=== PATIENT | female | born 2000 | race Two or more races ===

== ENCOUNTER 2024-03-26 09:27 | Outpatient (CLI) | payer MEDICAID, SELFPAY ==
--- NOTE | 2024-03-26 09:40 | XR_ITS ---
Examination: Biophysical profile, ultrasound Date and time of exam: March 26, 2024 1034 hours INDICATIONS: No movement depicted last night Technique: Multiple transabdominal sonographic images of the pelvis abdomen obtained. Attention is directed to the breathing movement, gross body movement, amniotic fluid volume and tone. Findings: Amniotic fluid index 7.4 cm Total biophysical profile is 8 of 8. breathing movement is 2. Gross body movement is 2. tone is 2. Qualitative amniotic fluid volume is 2 Impression: Biophysical profile is 8 of 8.
--- NOTE | 2024-03-26 09:40 | XR_ITS ---
Examination: Complete OB ultrasound greater than 14 weeks Date and time of exam: March 26, 2024 1043 hours INDICATIONS: No movement noted last night Findings: Viable intrauterine single fetus with single amniotic sac presentation cephalic spine maternal left Cardiac motion 144 BPM Placenta anterior grade 2 Clinical: Insertion 3 vessel seen Amniotic fluid index 9.2 cm Cervix 4.6 cm Ovaries obscured by bowel gas. Composite estimated gestational age based on BPD, head circumference, abdominal circumference, femur length is 36 weeks 3 days Estimated weight 2815 g. Survey of intracranial anatomy, spinal anatomy, abdominal anatomy, four-chamber heart performed with no abnormalities identified. Impression: Viable intrauterine gestation cephalic presentation.
[2024-03-26 09:46] VITALS: BP 124/64; PULSE 86; RESP 16; TEMP 36.8; O2SAT 100
[2024-03-26 09:47] VITALS: BMI 53.6
[2024-03-26 09:48] VITALS: TEMP 36.8
[2024-03-26 09:56] VITALS: BP 118/57; PULSE 87
[2024-03-26 10:06] VITALS: BP 114/55; PULSE 95
[2024-03-26 10:16] VITALS: BP 110/52; PULSE 89
[2024-03-26 10:26] VITALS: BP 112/53; PULSE 95
== END 2024-03-26 11:45 | disposition home or self-care (01) ==
LOC: S4S1 09:33 → S4SX 09:34
PROVIDERS: PCP Family Medicine; Referring Provider Advanced Practice Midwife; Visit Provider Specialist
DX: O36.8130 Decreased fetal movements, third trimester, not applicable or unspecified (principal); Z3A.36 36 weeks gestation of pregnancy
CPT/HCPCS: 59025; 76805; 76819

== ENCOUNTER 2024-04-13 10:30 | Outpatient (CLI) | payer MEDICAID, SELFPAY ==
[2024-04-13 10:36] VITALS: BP 132/63; PULSE 96
[2024-04-13 10:38] VITALS: BMI 54.3
[2024-04-13 10:51] VITALS: BP 132/63; PULSE 87; RESP 18; RESP 99; TEMP 36.7
== END 2024-04-13 11:10 | disposition home or self-care (01) ==
LOC: S4S1 10:31 → S4SX 10:31
PROVIDERS: Referring Provider Advanced Practice Midwife; Visit Provider Advanced Practice Midwife
DX: Z34.03 Encounter for supervision of normal first pregnancy, third trimester (principal); Z36.9 Encounter for antenatal screening, unspecified; Z3A.39 39 weeks gestation of pregnancy
CPT/HCPCS: 59025

== ENCOUNTER 2024-04-15 12:14 | Outpatient (RCR) | payer MEDICAID, SELFPAY ==
--- NOTE | 2024-04-01 13:19 | XR_ITS ---
Examination: Biophysical profile, ultrasound Date and time of exam: April 01, 2024 1344 hours INDICATIONS: Morbid obesity complicating Technique: Multiple transabdominal sonographic images of the pelvis abdomen obtained. Attention is directed to the breathing movement, gross body movement, amniotic fluid volume and tone. Findings: Amniotic fluid index 9.9 cm Total biophysical profile is 8 of 8. breathing movement is 2. Gross body movement is 2. tone is 2. Qualitative amniotic fluid volume is 2 Impression: Biophysical profile is 8 of 8.
[2024-04-01 14:09] VITALS: BP 130/70; PULSE 106; RESP 16; TEMP 36.7
--- NOTE | 2024-04-08 12:34 | XR_ITS ---
Examination: Biophysical profile, ultrasound Date and time of exam: April 08, 2024 1253 hrs. Indications: Morbid obesity complicating Technique: Multiple transabdominal sonographic images of the pelvis abdomen obtained. Attention is directed to the breathing movement, gross body movement, amniotic fluid volume and tone. Findings: Amniotic fluid index 17.1 cm Total biophysical profile is 8 of 8. breathing movement is 2. Gross body movement is 2. tone is 2. Qualitative amniotic fluid volume is 2 Impression: Biophysical profile is 8 of 8.
[2024-04-08 13:55] VITALS: BP 138/78; PULSE 90; RESP 18; TEMP 36.8
--- NOTE | 2024-04-15 12:35 | XR_ITS ---
Examination: Biophysical profile, ultrasound Date and time of exam: April 15, 2024 1236 hrs. Indications: Morbid obesity complicating Technique: Multiple transabdominal sonographic images of the pelvis abdomen obtained. Attention is directed to the breathing movement, gross body movement, amniotic fluid volume and tone. Findings: Fluid index 4.6 cm Total biophysical profile is 6 of 8. breathing movement is 2. Gross body movement is 2. tone is 2. Qualitative amniotic fluid volume is 0 Impression: Biophysical profile is 6 of 8.
[2024-04-15 13:29] VITALS: BP 124/76; PULSE 90; RESP 18; TEMP 36.9
== END 2024-04-15 23:59 | disposition home or self-care (01) ==
LOC: S4S1 12:14
PROVIDERS: Referring Provider Advanced Practice Midwife; Visit Provider Advanced Practice Midwife
DX: O99.213 Obesity complicating pregnancy, third trimester (principal); E66.9 Obesity, unspecified; O09.93 Supervision of high risk pregnancy, unspecified, third trimester; Z3A.39 39 weeks gestation of pregnancy
CPT/HCPCS: 59025; 76819

== ENCOUNTER 2024-04-15 13:49 | Inpatient (IN) | payer MEDICAID, SELFPAY ==
[2024-04-15 15:50] VITALS: BP 141/80; PULSE 94
[2024-04-15 16:05] LABS: Basophils % (Auto) 0 % (0-2.5); Eosinophils % (Auto) 0 % (0-10); Hematocrit 38.3 % (36.0-46.0); Hemoglobin 13.1 g/dL (12.0-16.0); Immature Granulocytes % (Auto) 0 % (0-0); Immature Granulocytes Auto 0.04 Thou/mm3 (0.00-0.00); Lymphocytes # (Auto) 2.2 Thou/mm3 (1.0-4.8); Lymphocytes % (Auto) 21 % (10-50); Mean Corpuscular HGB Conc 34.2 g/dl (31.0-37.0); Mean Corpuscular Hemoglobin 29.4 pg (25.0-35.0); Mean Corpuscular Volume 86 fL (80-100); Monocytes # (Auto) 0.9 Thou/mm3 (0.0-0.8); Monocytes % (Auto) 8 % (0-12); Neutrophils # (Auto) 7.4 Thou/mm3 (1.8-7.7); Neutrophils % (Auto) 70 % (37-80); Nucleated Red Blood Cell % 0 /100 WBC (0); Platelet Count 291 Thou/mm3 (140-440); RDW Standard Deviation 40.1 fL (36.4-46.3); Red Blood Count 4.46 Miln/mm3 (4.00-5.20); White Blood Count 10.5 Thou/mm3 (3.6-11.0)
[2024-04-15 16:36] VITALS: BP 138/65; PULSE 81
[2024-04-15] MEDS: RINGERS LACTATED 1000 ML 1,000 ML 125 ML IV (16:40)
[2024-04-15 16:44] LABS: Syphilis Nonreactive (Nonreactive)
[2024-04-15] MEDS: MISOPROSTOL 50 mCg TABLET PO ×2 (16:55→20:58)
[2024-04-15 16:56] VITALS: BMI 54.1
[2024-04-15 18:10] VITALS: RESP 18; TEMP 36.9
--- NOTE | 2024-04-15 19:34 | XR_ITS ---
Examination: Complete OB ultrasound greater than 14 weeks Date and time of exam: April 15, 2024 195 hrs. Pelvic cramping after induction medications today Findings: Viable intrauterine single fetus with single amniotic sac presentation cephalic Cardiac motion 140 BPM Placenta anterior grade 2 Umbilical cord insertion seen Amniotic fluid index 9.7 cm Cervix ovaries obscured by bowel gas. Composite estimated gestational age based on BPD, head circumference, abdominal circumference, femur length is 38 weeks 6 days Estimated weight 3543.9 g. Survey of intracranial anatomy, spinal anatomy, abdominal anatomy, four-chamber heart performed with no abnormalities identified. Impression: Viable intrauterine gestation cephalic presentation.
[2024-04-15 20:35] VITALS: BP 130/58; PULSE 87
[2024-04-15 23:30] VITALS: TEMP 36.8
[2024-04-15 23:32] VITALS: BP 136/83; PULSE 85
[2024-04-16] VITALS (166 sets, daily range): BP systolic 109–187; BP diastolic 54–112; PULSE 75–124; RESP 16–18; TEMP 36.7–36.8; O2SAT 91–100
[2024-04-16] MEDS: MISOPROSTOL 50 mCg TABLET PO ×2 (01:00→04:58)
--- NOTE | 2024-04-16 09:11 | PD.LDHP ---
Documentation for date of: 04/16/24 OB Labor/Induct. HPI History of Present Illness Chief complaint: induction : 1 Para: 0 Term pregnancies: 0 pregnancies: 0 Living children: 0 History of Abortions: Spontaneous and Elective: 0 History of Vaginal deliveries: 0 History of sections: No History of : No Date of last menstrual period: 07/14/23 BRODY: 04/19/24 Gestational Age (weeks): 39 Gestational Age (days): 3 Gestational age based on last menstrual period: 39 Indication for induction: other (obesity) History of present illness: 24-year-old 1 para 0 admit to labor and delivery for induction of labor. Patient had come in for NST BPP and her BRIANA was 4 patient has a history of morbid obesity. BMI is 50. So patient was kept for induction. She was followed at family her first visit family health clinic was at 30 weeks. However her first visit to an OB was 7 weeks. Denies social habits. Denies surgery. Denies chronic illness. Patient is Rh+, antibody screen negative, RPR nonreactive, rubella immune, hepatitis B-, hep C negative, HIV negative, GC and Chlamydia were negative. She had negative carrier screens negative AFP and NIPT. A normal 1 hour. And her GBS was negative History of Present Dating criteria: LMP confirmed by 1st trimester US Adequate Care: Yes Ultrasounds: normal 1st trimester US and normal mid trimester US Obstetrical complications: none Medical complications: none Labs Labs: Negative: Hepatitis B, HIV, Chlamydia, Gonorrhea and Group Beta Strep Review of Systems Review of Systems Systems Reviewed: All systems reviewed, normal except as documented Past Medical History Surgical History SURGICAL: Negative Section Meds Home Medications and Allergies Home Medications ?Medication ?Instructions ?Recorded ?Confirmed ?Type kwiekccc-[id number]-[id number] 1 mg 2 tab PO DAILY 03/07/24 04/15/24 History tablet Allergies Allergy/AdvReac Type Severity Reaction Status Date / Time No Known Allergies Allergy Verified 04/15/24 16:33 OB Exam Physical Exam Vital signs: Temp Pulse Resp BP 98.3 F 75 18 136/84 H 04/16/24 06:56 04/16/24 06:59 04/16/24 06:56 04/16/24 06:59 Narrative: Normal heart rate and rhythm. Lungs clear no wheezes. Gravid abdomen. Gynecoid pelvis. Estimated weight 3500 g. Vaginal exam admission was 50%, 2, soft. -1. Vertex. Bag water intact. heart rate category 1 with accelerations and moderate variability and irregular contractions Detailed Labor and Delivery Exam Dilation (cm): 2 Effacement (%): 50 Cervix position: mid station: -2 Consistency: soft Presentation: Vertex Cervical ripeness score: 6 Membranes: intact Baseline heart rate: 135 monitor accelerations: 15x15 monitor decelerations: None intermediate variability: Moderate (11-25) Contraction frequency (min): irreg Contraction duration (sec): 30 Tachysystole: No Contraction intensity: Mild OB Results Labs 04/15/24 15:30 Labs: Short CBC 04/15/24 Range/Units 15:30 WBC 10.5 (3.6-11.0) Thou/mm3 Hgb 13.1 (12.0-16.0) g/dL Hct 38.3 (36.0-46.0) % Plt Count 291 (140-440) Thou/mm3 Impressions Impression: induction OB Assessment & Plan Assessment and Plan (1) Normal labor and delivery: Status: Acute Additional Plan Induction method: per misoprostol protocol Plan: induction, anticipate NVD and consult MD elizabeth
[2024-04-16] MEDS: OXYTOCIN in NS 30 units 30 UNIT/500 ML BAG IV (12:20)
[2024-04-16] MEDS: RINGERS LACTATED 1000 ML 1,000 ML 125 ML IV ×3 (14:35→18:34)
--- NOTE | 2024-04-16 15:35 | PD.LDPN ---
Documentation for date of: 04/16/24 OB Labor Progress Note Pain Control Pain control: tolerating well Pelvic Exam Dilation (cm): 4 Effacement (%): 50 station: -1 Amniotic membrane status: Ruptured (clear) Contractions Monitor mode: Internal Contraction frequency: q3 Contraction duration: 20 Contraction phase: Resting Contraction intensity: Mild Status status: Category l Assessment and Plan Pitocin rate (mU/min): 2 Assessment: induction ongoing Plan OB labor note: continuous present management CNM Management MD Consulted (describe details below): Yes
[2024-04-16] MEDS: fentaNYL CIT INJ 50 mCg/ML AMP 2ML 100 MCG IV (22:33)
[2024-04-16] MEDS: ONDANSETRON INJ 2 MG/ML INJ 2 ML 4 MG IV (23:26)
[2024-04-17] VITALS (88 sets, daily range): BP systolic 112–160; BP diastolic 60–82; PULSE 75–211; RESP 16–19; TEMP 36.5–37.2; O2SAT 83–100
[2024-04-17] MEDS: fentaNYL CIT INJ 50 mCg/ML AMP 2ML 100 MCG IV (01:15)
[2024-04-17] MEDS: MISOPROSTOL 200 mCg TABLET 800 MCG PR (03:14)
[2024-04-17] MEDS: LIDOCAINE HCL 1% 20 ML VIAL INFL (03:14)
[2024-04-17] MEDS: TRANEXAMIC ACID 1,000 MG IVPB 1,000 MG/100 ML BAG 200 MG IV (03:55)
--- NOTE | 2024-04-17 03:58 | OBDSUM_ITS ---
Data (Morrison) Data Hx Section: No : 1 Para: 0 Term: 0 : 0 : 0 Delivery Data (Morrison) Labor Data Stimulated/Augmented: Yes Induction: Yes Method: Cytotec (followed by pitocin) ROM Date: 04/16/24 ROM Time: 15:20 Rupture Type: AROM Amniotic Fluid: Clear Delivery Data EDC: 04/19/24 EDC calculated by:: LMP/early US confirmation Labor Onset Stage 1 Date: 04/16/24 Labor Onset Stage 1 Time: 20:00 Labor Onset Stage 2 Date: 04/17/24 Labor Onset Stage 2 Time: 02:32 Delivery Date: 04/17/24 Delivery Time: 03:06 Gestational age (weeks): 39 Gestational age (days): 3 Placenta Delivery Date: 04/17/24 Placenta Delivery Time: 03:12 Delivered by: Lana Michelle Delivery nurse: Jarvis oRsales Other staff at delivery: Nursery Nurse Other staff at delivery: Esperanza Ramos Delivery Method Delivery: Vaginal Delivery Type: Spontaneous Presentation: Compound (posterior hand) Position: OA Anesthesia Type Primary Anesthesia: Epidural Secondary Anesthesia: Local Delivery Room Medications Intrapartum Medications: Narcotics and Tocolytics Post Delivery Medications: Tocolytics and Cytotec Placenta Placenta Delivery: Spontaneous (placenta inspected, intact) Placenta Cultures Obtained: No Placenta Sent for Examination: No Cord Sample: Cord Blood Obtained Episiotomy Episiotomy: None Lacerations #1: Vaginal: 1st degree (and vaginal wall) Perineal repair Sutures used for repair: 3.0 Vicryl EBL Estimated blood loss (ml): 350 Umbilical Cord Umbilical Vessels: 3 Nuchal Cord: None Body Cord: None [place] Data (Morrison) Data Infant Gender: Male Weight Grams: 3310 1 Minute Total: 9 5 Minute Total: 9
[2024-04-17] MEDS: OXYTOCIN in NS 20 units 20 UNIT/1,000 ML BAG 125 UNIT IV (04:17)
[2024-04-17] MEDS: BENZO/LANO/ALOE (Dermoplast) 60 GM CAN 1 SPRAY TOP (04:22)
[2024-04-17] MEDS: IBUPROFEN TAB 400 MG TABLET 800 MG PO ×2 (04:24→16:56)
[2024-04-17] MEDS: DOCUSATE SOD 100 MG CAPSULE PO ×2 (08:04→21:27)
[2024-04-17 12:35] LABS: Basophils % (Auto) 0 % (0-2.5); Eosinophils % (Auto) 0 % (0-10); Hematocrit 32.4 % (36.0-46.0); Hemoglobin 10.9 g/dL (12.0-16.0); Immature Granulocytes % (Auto) 0 % (0-0); Immature Granulocytes Auto 0.07 Thou/mm3 (0.00-0.00); Lymphocytes # (Auto) 1.8 Thou/mm3 (1.0-4.8); Lymphocytes % (Auto) 11 % (10-50); Mean Corpuscular HGB Conc 33.6 g/dl (31.0-37.0); Mean Corpuscular Hemoglobin 29.2 pg (25.0-35.0); Mean Corpuscular Volume 87 fL (80-100); Monocytes # (Auto) 1.1 Thou/mm3 (0.0-0.8); Monocytes % (Auto) 7 % (0-12); Neutrophils # (Auto) 12.6 Thou/mm3 (1.8-7.7); Neutrophils % (Auto) 81 % (37-80); Nucleated Red Blood Cell % 0 /100 WBC (0); Platelet Count 257 Thou/mm3 (140-440); RDW Standard Deviation 41.4 fL (36.4-46.3); Red Blood Count 3.73 Miln/mm3 (4.00-5.20); White Blood Count 15.6 Thou/mm3 (3.6-11.0)
[2024-04-17] MEDS: ACETAMINOPHEN 325 MG TABLET 650 MG PO (21:29)
[2024-04-18 03:15] VITALS: BP 138/86; PULSE 84; RESP 16; TEMP 36.7; O2SAT 99
--- NOTE | 2024-04-18 07:05 | PD.LDPPPRG ---
Subjective Subjective Interval history: No complaints of pain. No dizziness. Bonding and breast-feed Exam Vital Signs Temp Pulse Resp BP Pulse Ox O2 Del Method 98.0 F 84 16 138/86 H 99 Room Air 04/18/24 03:15 04/18/24 03:15 04/18/24 03:15 04/18/24 03:15 04/18/24 03:15 04/18/24 03:15 Narrative Exam Vital signs stable afebrile. Breasts are soft. Fundus firm below the umbilicus. Perineum intact no swelling. Small lochia. Vaginal lacerations healing. Negative Homans' sign. Objective Labs 04/17/24 12:30 Labs: Laboratory Results - last 24 hr 04/17/24 12:30 WBC 15.6 H D RBC 3.73 L Hgb 10.9 L D Hct 32.4 L MCV 87 MCH 29.2 MCHC 33.6 RDW Std Deviation 41.4 Plt Count 257 D Neut % (Auto) 81 H Lymph % (Auto) 11 [place] % (Auto) 7 Eos % (Auto) 0 Baso % (Auto) 0 Neut # (Auto) 12.6 H Lymph # (Auto) 1.8 [place] # (Auto) 1.1 H Eos # (Auto) 0.0 Baso # (Auto) 0.0 Immature Gran # (Auto) 0.07 H Absolute Nucleated RBC 0.00 Immature Gran % 0 Nucleated RBC % 0 Assessment & Plan Problem List (1) Normal labor and delivery: Status: Acute Assessment Comment Assessment comment: 24 hr pp Plan Comment Plan Comment: Discharge home with baby. Continue vitamins and iron. Tylenol or ibuprofen for pain. Danger signs. Discussed ER precautions and parameters. Discussed signs and symptoms of infection. Increase fluids and rest return in 2 to 3 weeks visit Time Spent With Patient Time: Total time spent is greater than 50% in coordination of care (as documented) at patient's floor/unit and/or counseling patient:
--- NOTE | 2024-04-18 07:07 | PD.LDDS ---
DS: Providers Provider Date of admission: 04/15/24 13:49 Primary care physician: Physician No Primary/Family Admitting Provider: Checo Coe MD Attending Provider on Admission: Lana Michelle CNM Consults: 04/17/24 05:44 Referral Routine Comment: Attending Provider on DC: Lana Michelle CNM Discharging Provider: Lana Michelle CNM DS: Diagnosis Problem List Completed Was Problem List Reviewed/Reconciled?: Yes Summary/Hosp Course Brief History: 24-year-old 1 para 0 admit to labor and delivery for induction of labor. Patient had come in for NST BPP and her BRIANA was 4 patient has a history of morbid obesity. BMI is 50. So patient was kept for induction. She was followed at family her first visit family health clinic was at 30 weeks. However her first visit to an OB was 7 weeks. Denies social habits. Denies surgery. Denies chronic illness. Patient is Rh+, antibody screen negative, RPR nonreactive, rubella immune, hepatitis B-, hep C negative, HIV negative, GC and Chlamydia were negative. She had negative carrier screens negative AFP and NIPT. A normal 1 hour. And her GBS was negative Peripartum Data Delivery Method: Normal Vaginal Delivery Episiotomy Description: None Laceration Description: yes (vaginal, R labial) Time Spent with Patient Time attestation: Total time spent providing and/or coordinating discharge services: Exam Vital Signs Temp Pulse Resp BP Pulse Ox O2 Del Method 98.0 F 84 16 138/86 H 99 Room Air 04/18/24 03:15 04/18/24 03:15 04/18/24 03:15 04/18/24 03:15 04/18/24 03:15 04/18/24 03:15 Discharge Plan Plan Patient Disposition: HOME (Self Care) Prescriptions/Referrals Prescriptions/Med Rec: No Action 1 mg Tablet 2 tab PO DAILY Referrals: No Primary/Family,Physician [Primary Care Provider] - Patient/Caregiver Discharge Instructions Print Language: Bulgarian Activity Restrictions/Additional Instructions: Discharge home with baby. Continue vitamins and iron. Tylenol ibuprofen for pain. Parameters. Discussed signs and symptoms of infection. Increase fluids and rest. Laceration care. Return in 2 to 3 weeks visit Stand Alone Forms: [facility] Award Info., Patient Portal Info Letter Discharge Order Discharge Orders: Discharge (Routine); Ordered 04/18/24 Ordered By: Lana Michelle Planned Discharge Date 04/18/24
[2024-04-18 08:00] VITALS: BP 134/84; PULSE 90; RESP 17; TEMP 36.8; O2SAT 98
[2024-04-18] MEDS: IBUPROFEN TAB 400 MG TABLET 800 MG PO (08:42)
[2024-04-18] MEDS: DOCUSATE SOD 100 MG CAPSULE PO (08:42)
== END 2024-04-18 13:25 | disposition home or self-care (01) | DRG 560 ==
LOC: S4SX 04-16 10:25 → S4NX 04-17 05:50
PROVIDERS: Admitting Provider Obstetrics & Gynecology; Visit Provider Advanced Practice Midwife
DX: O99.214 Obesity complicating childbirth (principal); E66.01 Morbid (severe) obesity due to excess calories; Z3A.39 39 weeks gestation of pregnancy; Z37.0 Single live birth; O70.0 First degree perineal laceration during delivery; O32.6XX0 Maternal care for compound presentation, not applicable or unspecified
CPT/HCPCS: 36415; 59409; 76805; 85025; 86780; 86850; 86900; 86901; 94762; J2405; J2590; J2795; J3010; J3490; J7120; S0191; A9270

== ENCOUNTER 2024-04-24 05:57 | Emergency (ER) | payer MEDICAID, SELFPAY ==
[2024-04-24 05:58] VITALS: BMI 49.6
[2024-04-24 06:06] VITALS: BP 148/101; PULSE 91; RESP 22; TEMP 36.6; O2SAT 98
--- NOTE | 2024-04-24 06:19 | XR_ITS ---
Examination: Pelvic ultrasound, transabdominal, complete Technique: Transabdominal ultrasound of the pelvis performed using grayscale imaging Date and time of exam: April 24, 2024 0804 hours INDICATIONS: 8 days with severe vaginal bleeding of blood clots today FINDINGS: enlarged uterus 16.4 x 6.0 x 10 cm Endometrial stripe 19 mm but no vascularity Blood clot in the lower uterine segment 2.5 x 2.2 x 5.4 cm Right ovary 4.0 x 2.0 x 3.5 cm arterial flow Left ovary 4.0 x 2.4 x 4.0 cm arterial flow IMPRESSION: enlarged uterus Findings most consistent with blood clot in the lower uterine segment
[2024-04-24 07:08] LABS: Basophils % (Auto) 0 % (0-2.5); Eosinophils # (Auto) 0.1 Thou/mm3 (0.0-0.5); Eosinophils % (Auto) 2 % (0-10); Hematocrit 35.8 % (36.0-46.0); Hemoglobin 11.9 g/dL (12.0-16.0); Immature Granulocytes % (Auto) 0 % (0-0); Immature Granulocytes Auto 0.03 Thou/mm3 (0.00-0.00); Lymphocytes % (Auto) 27 % (10-50); Mean Corpuscular HGB Conc 33.2 g/dl (31.0-37.0); Mean Corpuscular Hemoglobin 29.2 pg (25.0-35.0); Mean Corpuscular Volume 88 fL (80-100); Monocytes # (Auto) 0.5 Thou/mm3 (0.0-0.8); Monocytes % (Auto) 7 % (0-12); Neutrophils # (Auto) 4.6 Thou/mm3 (1.8-7.7); Neutrophils % (Auto) 64 % (37-80); Nucleated Red Blood Cell % 0 /100 WBC (0); Platelet Count 346 Thou/mm3 (140-440); RDW Standard Deviation 41.5 fL (36.4-46.3); Red Blood Count 4.07 Miln/mm3 (4.00-5.20); White Blood Count 7.2 Thou/mm3 (3.6-11.0)
[2024-04-24 07:17] LABS: Alanine Aminotransferase 15 U/L (10-49); Albumin, Serum 4.3 gm/dL (3.5-5.0); Albumin/Globulin Ratio 1.9 (1.2-2.2); Alkaline Phosphatase 101 U/L (46-116); Anion Gap 9 (7-16); Aspartate Amino Transferase 12 U/L (0-34); BUN/Creatinine Ratio 13 Ratio (12-20); Bilirubin,Total 0.3 mg/dL (0.3-1.2); Blood Urea Nitrogen 10 mg/dL (9-23); Calcium 9.1 mg/dL (8.3-10.6); Calcium (Corrected) 9.1 mg/dL (8.5-10.1); Carbon Dioxide 26.1 mMol/L (20.0-31.0); Chloride 106 mMol/L (98-107); Creatinine (Component) 0.8 mg/dL (0.6-1.3); Estimated Creatinine Clearance 143.2 mL/min (>60); Globulin 2.3 gm/dL (2.3-3.5); Glucose 94 mg/dL (74-106); Osmolality,Calculated 280 (275-295); Potassium 3.9 mMol/L (3.4-5.1); Sodium 141 mMol/L (136-145); Total Protein 6.6 gm/dL (5.7-8.2); eGFR > 60 See Note
[2024-04-24 07:18] LABS: Partial Thromboplastin Time 27.3 Seconds (22.0-36.0)
--- NOTE | 2024-04-24 09:44 | PD.EDVAGBL ---
ED OB Contraction Preg RMI/HPI General Chief complaint: Vaginal Bleeding Stated complaint: VAGINAL BLEEDING Time Seen by Provider: 04/24/24 06:11 Arrival date/time: 04/24/24 05:57 24-year-old female 7 days presents to the emergency department today with complaints of vaginal bleeding/blood clots. Patient reports no fever nausea or vomiting no headache dizziness or weakness Limitations: no limitations Related Data Home Medications ?Medication ?Instructions ?Recorded ?Confirmed pofjcext-kme-Ft-FA 1 mg 2 tab PO DAILY 03/07/24 04/15/24 tablet Allergies Allergy/AdvReac Type Severity Reaction Status Date / Time No Known Allergies Allergy Verified 04/24/24 06:00 Review of Systems Review of Systems Systems Reviewed: All systems reviewed, normal except as documented Constitutional Constitutional: Reports system reviewed and no additional complaints, except as documented, Denies fever(s) and Denies headache(s) Eyes Eyes: Reports system reviewed and no additional complaints, except as documented and Denies blurry vision ENT Ears, Nose, Mouth, and Throat: Reports system reviewed and no additional complaints, except as documented, Denies headache(s), Denies nasal congestion and Denies nasal discharge Cardiovascular Cardiovascular: Reports system reviewed and no additional complaints, except as documented, Denies chest pain and Denies dyspnea Respiratory Respiratory: Reports system reviewed and no additional complaints, except as documented, Denies chest congestion, Denies cough and Denies dyspnea Gastrointestinal Gastrointestinal: Reports system reviewed and no additional complaints, except as documented and Denies abdominal pain Genitourinary Genitourinary: Reports system reviewed and no additional complaints, except as documented and Reports abnormal vaginal bleeding Integumentary/Breasts Skin/Breast: Reports system reviewed and no additional complaints, except as documented and Denies rash Neurologic Neurologic: Reports system reviewed and no additional complaints, except as documented, Reports as per HPI and Denies headache(s) Past Medical History Past Medical History NEUROLOGIC: Negative Neurological Disorders CARDIAC: Negative Cardiac Disorders ED Exam General Limitations: Present no limitations General appearance: Present alert and in no apparent distress Head Head exam: Present atraumatic, normocephalic and normal inspection Eye Eye exam: Present normal appearance, PERRL and EOMI; Absent conjunctival injection ENT ENT exam: Present normal exam, normal oropharynx and mucous membranes moist Neck Neck exam: Present normal inspection, full ROM and trachea midline Chest Chest inspection: Present normal inspection and symmetric chest wall rise Respiratory Respiratory exam: Present normal lung sounds bilaterally; Absent respiratory distress Cardiovascular Cardiovascular exam: Present regular rate, normal rhythm and normal heart sounds Abdominal Exam Abdominal exam: Present soft and normal bowel sounds; Absent distention, tenderness, guarding, rebound or rigidity Extremities Exam Extremities exam: Present normal inspection and full ROM Back Exam Back exam: Present normal inspection and full ROM Neurological Exam Neurological exam: Present alert, oriented X3 and CN II-XII intact Psychiatric Psychiatric exam: Present normal affect and normal mood Skin Skin exam: Present warm, dry, intact and normal color Course Quality Measures none Orders Category Date Time Status US pelvic complete Stat Exams 04/24/24 06:19 Completed CBC Stat Lab 04/24/24 06:30 Completed Comprehensive Metabolic Panel Stat Lab 04/24/24 06:30 Completed Partial Thromboplastin Time Stat Lab 04/24/24 06:30 Completed Prothrombin Time with INR Stat Lab 04/24/24 06:30 Completed Vital Signs Vital signs: Vital Signs Temperature 97.8 F 04/24/24 06:06 Pulse Rate 91 04/24/24 06:06 Respiratory Rate 22 H 04/24/24 06:06 Blood Pressure 148/101 H 04/24/24 06:06 Pulse Oximetry (%) 98 04/24/24 06:06 Oxygen Delivery Method Room Air 04/24/24 06:06 O2 saturation 98% on room air within normal limits Vaginal Bleeding MDM Narrative MDM Narrative: 24-year-old female 7 days presents to the emergency department today with complaints of vaginal bleeding/blood clots. Patient reports no fever nausea or vomiting no headache dizziness or weakness On exam patient well-appearing patient does not appear ill or toxic patient does not appear in acute distress patient has nontender abdomen Lab work as well as ultrasound obtained Lab work as well as ultrasound reviewed no acute emergent findings noted hemoglobin stable patient has no retained products of conception Repeat blood pressure 139/87 patient does report having high blood pressure during Patient struck to follow-up with [facility] soon as possible if she has increased bleeding or pain return immediately patient states understanding Patient data External records reviewed:: [facility] previous records Clinical information provided by:: patient Social determinants that could affect healthcare access:: none Patient has the following chronic illnesses:: None How is presenting disease/condition affected by chronic disease/condition?: no chronic disease Evaluation data The following diagnostics were reviewed and interpreted by me:: lab results and radiology exam(s) Lab and/or radiology exams considered but not ordered:: Labs and radiology obtained Interpretation Summary: Reviewed by me Medications / Prescriptions Medications or Prescriptions considered but not ordered:: Given no meds Medication administrations:: Given no meds Consultations Consultation(s) initiated? (list below): No Diagnosis Vaginal Bleeding Differential Diagnosis: missed , threatened , vaginal bleeding and other ( vaginal bleeding) Most likely diagnosis given after review of the tests above:: vaginal bleeding Admission Indicated Admission indicated?: not indicated Admission Request Was there a request for admission?: No Disposition Plan Disposition Plan: Discharge Discharge Attestation Discharge Attestation: The patient and all family members were given an opportunity to ask questions and understood the discharge instructions. Discharge instructions specifically effects, indications for sooner follow up or return to the emergency department, and the expected course of current diagnosis. Patient condition: Stable Discharge Plan Plan Patient Disposition: HOME (Self Care) Disposition Comment: Stable Prescriptions/Referrals Prescriptions/Med Rec: No Action 1 mg Tablet 2 tab PO DAILY Referrals: Lana Michelle CNM [Primary Care Provider] - 04/25/24 Problem List Clinical Impression: bleeding Patient/Caregiver Discharge Instructions Additional Instructions: Please follow up with your [facility] in the next 24-48hrs for any worsening symptoms return here immediately If your symptoms persist or worsens please return to the ER immediately for further evaluation Print Language: Chilean Stand Alone Forms: [facility] Award Info., Patient Portal Info Letter PRASHANTH/NATASHA Supervising Physician MINESH Supervising Physician: Dr. Ruggiero
== END 2024-04-24 10:33 | disposition home or self-care (01) ==
PROVIDERS: Nurse Practitioner Primary Care; Emergency Provider Emergency Medicine; PCP Advanced Practice Midwife
DX: O72.2 Delayed and secondary postpartum hemorrhage (principal)
CPT/HCPCS: 36415; 76856; 80053; 85025; 85610; 85730; 99284

== ENCOUNTER 2024-08-03 01:35 | Emergency (ER) | payer MEDICAID, SELFPAY ==
[2024-08-03 01:35] VITALS: BMI 38.7
[2024-08-03 02:10] VITALS: BP 147/102; PULSE 85; RESP 18; TEMP 37.2; O2SAT 98
--- NOTE | 2024-08-03 02:34 | EDNOTE_ITS ---
ED Dental RME/HPI General Chief complaint: Dental/Oral/Throat Stated complaint: TOOTH PAIIN Time Seen by Provider: 08/03/24 01:46 Arrival date/time: 08/03/24 01:35 24 year old female present to emergency room with c/o of tooth pain worsen today. recent had tooth extraction 6 days ago. SEVERITY: Symptoms are described as being severe with limitations on activities of daily living CONTEXT: The patient is unable to identify any inciting events. DURATION/TIMING: The symptoms started approximately 2 days ASSOCIATED SYMPTOMS: The patient is unable to identify any other associated symptoms. MODIFYING FACTORS: The patient is unable to identify any alleviating or aggravating symptoms. PERTINENT ROS: no fevers, no chest pain/shortness of breath no nausea,vomiting, diarrhea, no dizziness/headache no rash no loc/syncope episode, difficulty swallowing, sore throat REVIEW OF SYSTEMS: See History of Present Illness - with the exception of those mentioned in the history of present illness, all other systems reviewed and reported as negative GENERAL: In general the patient is awake, interactive, in an emergency department gurney. HEAD/EYES/EARS/NOSE/THROAT: + right lower 3rd molar region + pulp noted. normo- cephalic, atraumatic, mucus membranes are moist, anicteric, palpebral conjunctiva is pink, trachea is midline. CARDIOVASCULAR: regular rate and regular rhythm, no murmurs, heart sounds are not distant, strong pulses in all four extremities that are equal and symmetric bilateral upper and lower extremities, normal capillary refill. CHEST/PULMONARY: normal chest rise and fall, good air movement, clear to auscultation bilaterally, normal inspiratory to expiratory ratios without evidence of respiratory distress. NECK: No midline/Paraspinal tenderness, no step off ROM/Strenght intact No Kernig and bruzinski sign. No trauma ABDOMEN: soft, not tender, no masses appreciated BACK: normal range of motion without pain. NEUROLOGICAL: cranio-facial features are symmetric, moves all four extremities equally without obvious limitations or weakness. EXTREMITY: no tenderness to palpation over the long bones or large joints of the bilateral upper and lower extremities, no joint swelling, no joint erythema, no signs of trauma, no unilateral leg swelling and no peripheral edema. SKIN: warm, dry, well-perfused, no jaundice, no rash, no telangiectasias or petechia. PSYCH: calm, cooperative, no evidence of psychosis or agitation Related Data Home Medications ?Medication ?Instructions ?Recorded ?Confirmed [id number] 1 mg 2 tab PO DAILY 04/15/24 tablet Previous Rx's ?Medication ?Instructions ?Recorded acetaminophen 300 mg-codeine 15 mg 1 tab PO Q8H PRN pa in #10 tabs 08/03/24 tablet Allergies Allergy/AdvReac Type Severity Reaction Status Date / Time No Known Allergies Allergy Verified 08/03/24 01:38 Course Course Course Narrative: continue with oral antibiotics follow up with dentist as directed rx: tylenol #3 for break through pain toradol 30mg IM before dc. no discharge no visiable abscess. no airway obstruction Quality Measures none Orders Category Date Time Status Ketorolac Inj [Toradol Inj] Med 08/03/24 02:29 Pending 30 mg IM X1 ONE Vital Signs Vital signs: Vital Signs Temperature 98.9 F 08/03/24 02:10 Pulse Rate 85 08/03/24 02:10 Respiratory Rate 18 08/03/24 02:10 Blood Pressure 147/102 H 08/03/24 02:10 Pulse Oximetry (%) 98 08/03/24 02:10 Oxygen Delivery Method Room Air 08/03/24 02:10 Dental / Oral Patient data External records reviewed:: [facility] previous records Clinical information provided by:: patient Social determinants that could affect healthcare access:: none Patient has the following chronic illnesses:: n/a How is presenting disease/condition affected by chronic disease/condition?: no chronic disease Evaluation data The following diagnostics were reviewed and interpreted by me:: other (specify) (n/a ) Lab and/or radiology exams considered but not ordered:: n/a Interpretation Summary: na Medications / Prescriptions Medications or Prescriptions considered but not ordered:: n/a Medication administrations:: Medication Administration History Ketorolac Tromethamine (Ketorolac Inj 60 Mg/2 Ml Vial) 30 mg IM X1 ONE Stop: 08/03/24 02:30 as state above Consultations Consultation(s) initiated? (list below): No Diagnosis Dental Differential Diagnosis: gingival abscess, dental caries, toothache and dental abscess Most likely diagnosis given after review of the tests above:: gum pain Admission Indicated Admission indicated?: not indicated Admission Request Was there a request for admission?: No Disposition Plan Disposition Plan: Discharge Discharge Attestation Discharge Attestation: The patient and all family members were given an opportunity to ask questions and understood the discharge instructions. Discharge instructions specifically effects, indications for sooner follow up or return to the emergency department, and the expected course of current diagnosis. Patient condition: Stable Discharge Plan Plan Patient Disposition: HOME (Self Care) Health Concerns: Follw up with dentist as directed Return to ED if symptoms worsen Prescriptions/Referrals Prescriptions/Med Rec: New acetaminophen-codeine 300-15 mg tablet 1 tab PO Q8H PRN (Reason: pain) Qty: 10 0RF No Action 1 mg Tablet 2 tab PO DAILY Problem List Clinical Impression: Pain in gums Patient/Caregiver Discharge Instructions Print Language: Chinese Stand Alone Forms: [facility] Info., Patient Portal Info Letter
[2024-08-03 04:29] LABS: HCG Qualitative,Urine Negative
[2024-08-03] MEDS: KETOROLAC INJ 60 MG/2 ML VIAL 30 MG IM (04:42)
--- NOTE | 2024-08-03 05:00 | PC.NURSE ---
PT CAME TO NURSE STATING PAIN IMPROVED AND WILL LIKE TO BE DISCHARGED.
[2024-08-03 05:04] VITALS: BP 127/64; PULSE 78; RESP 19; TEMP 36.8; O2SAT 99
== END 2024-08-03 05:10 | disposition home or self-care (01) ==
LOC: SERX 03:24
PROVIDERS: Physician Assistant; Emergency Provider Emergency Medicine
DX: K08.89 Other specified disorders of teeth and supporting structures (principal)
CPT/HCPCS: 81025; 96372; 99283; J1885

== ENCOUNTER 2025-02-07 15:56 | Emergency (ER) | payer MEDICAID, SELFPAY ==
[2025-02-07 16:03] VITALS: BP 148/95; PULSE 98; RESP 20; TEMP 36.8; O2SAT 98; BMI 49.2
--- NOTE | 2025-02-07 16:10 | XR_ITS ---
Examination: Pelvic ultrasound, transabdominal, complete Technique: Transabdominal ultrasound of the pelvis performed using grayscale imaging Date and time of exam: February 07, 2025, 1611 hours INDICATIONS: Right-sided pelvic pain beginning 2 days ago. FINDINGS: Uterus 8.5 cm endometrial stripe 0.7 cm No uterine mass or intrauterine gestation. Right ovary 4.0 cm arterial flow, 25 x 28 mm simple cyst Left ovary 4.1 cm arterial flow IMPRESSION: No uterine mass or intrauterine gestation Right ovarian simple cyst 25 x 20 x 28 mm
--- NOTE | 2025-02-07 16:11 | EDRME_ITS ---
<Statement entered by Daija Orozco MD - 02/07/25 17:55> As co-signing physician, I was present and available for consult prn. I concur with the plan and care as documented by the midlevel provider. Rapid Medical Screening Exam RME Arrival date/time: 02/07/25 15:56 25-year-old female presents to the Emergency Department for complaints of right- sided pelvic pain/abdominal pain ongoing x 2 days Chief Complaint: Abdominal Pain Vital signs: Vital Signs Temperature 98.2 F 02/07/25 16:03 Pulse Rate 98 02/07/25 16:03 Respiratory Rate 20 02/07/25 16:03 Blood Pressure 148/95 H 02/07/25 16:03 Pulse Oximetry (%) 98 02/07/25 16:03 Oxygen Delivery Method Room Air 02/07/25 16:03 Exam: Right-sided pelvic tenderness lower abdominal tenderness Neurological exam normal Clinical Impression: Lab work and imaging obtained Differentials include but not limited to gastroenteritis, appendicitis, ovarian cyst
[2025-02-07 16:35] LABS: Collection Type, Urine Clean Catch
[2025-02-07 16:44] LABS: Bilirubin,Urine Negative (Negative); Blood,Urine Negative (Negative); Clarity,Urine Turbid (Clear/Hazy); Color,Urine Yellow (Lt Yel-Yel); Culture Indicated,Urine Contaminated; Glucose, Urine Negative (Negative); Hyaline Casts,Urine < 1 /hpf (0-1); Ketones,Urine Negative (Negative); Leukocyte Esterase,Urine Positive (Negative); Nitrite,Urine Negative (Negative); PH,Urine 5.5 (5.0-7.0); Protein,Urine Trace (Neg - Trace); RBC,Urine 3 /hpf (0-3); Specific Gravity,Urine 1.031 (1.001-1.035); Squamous Epithelial Cell,Urine 39 /hpf (0-5); Urobilinogen,Urine Negative mg/dL (0.0-1.0); WBC,Urine 14 /hpf (0-5)
[2025-02-07 16:47] LABS: Basophils # (Auto) 0.0 Thou/mm3 (0.0-0.2); Basophils % (Auto) 0 % (0-2.5); Eosinophils # (Auto) 0.0 Thou/mm3 (0.0-0.5); Eosinophils % (Auto) 1 % (0-10); Hematocrit 39.4 % (36.0-46.0); Hemoglobin 12.9 g/dL (12.0-16.0); Immature Granulocytes Auto 0.04 Thou/mm3 (0.00-0.00); Lymphocytes # (Auto) 2.6 Thou/mm3 (1.0-4.8); Lymphocytes % (Auto) 32 % (10-50); Mean Corpuscular HGB Conc 32.7 g/dl (31.0-37.0); Mean Corpuscular Hemoglobin 28.9 pg (25.0-35.0); Mean Corpuscular Volume 88 fL (80-100); Monocytes # (Auto) 0.6 Thou/mm3 (0.0-0.8); Monocytes % (Auto) 7 % (0-12); Neutrophils # (Auto) 4.9 Thou/mm3 (1.8-7.7); Neutrophils % (Auto) 60 % (37-80); Nucleated Red Blood Cell # 0.00 Thou/mm3 (0.00-0.00); Nucleated Red Blood Cell % 0 /100 WBC (0); Platelet Count 331 Thou/mm3 (140-440); RDW Standard Deviation 37.5 fL (36.4-46.3); Red Blood Count 4.46 Miln/mm3 (4.00-5.20); White Blood Count 8.2 Thou/mm3 (3.6-11.0)
[2025-02-07 16:50] LABS: HCG Qualitative,Urine Negative
[2025-02-07 17:08] LABS: Alanine Aminotransferase 27 U/L (10-49); Albumin, Serum 4.7 gm/dL (3.5-5.0); Albumin/Globulin Ratio 2.5 (1.2-2.2); Alkaline Phosphatase 76 U/L (46-116); Anion Gap 9 (7-16); Aspartate Amino Transferase 22 U/L (0-34); BUN/Creatinine Ratio 10 Ratio (12-20); Bilirubin,Total 0.2 mg/dL (0.3-1.2); Blood Urea Nitrogen 8 mg/dL (9-23); C-Reactive Protein < 0.5 mg/dL (0.0-0.9); Calcium 9.0 mg/dL (8.3-10.6); Calcium (Corrected) 9.0 mg/dL (8.5-10.1); Carbon Dioxide 26.2 mMol/L (20.0-31.0); Chloride 105 mMol/L (98-107); Creatinine (Component) 0.8 mg/dL (0.6-1.3); Estimated Creatinine Clearance 146.6 mL/min (>60); Globulin 1.9 gm/dL (2.3-3.5); Glucose 130 mg/dL (74-106); Lipase 61 U/L (12-53); Osmolality,Calculated 279 (275-295); Potassium 4.0 mMol/L (3.4-5.1); Sodium 140 mMol/L (136-145); Total Protein 6.6 gm/dL (5.7-8.2); eGFR > 60 See Note
--- NOTE | 2025-02-07 20:07 | PD.EDABDPN ---
ED Abdominal Pain RME/HPI General Chief Complaint: Abdominal Pain Stated complaint: RLQ ABD PAIN Time seen by provider: 02/07/25 17:13 Arrival date/time: 02/07/25 15:56 RME / HPI RME / HPI narrative: 02/07/25 15:56 25-year-old female presents to the Emergency Department for complaints of right-sided pelvic pain/abdominal pain ongoing x [address] 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 Reports urinary frequency, but no dysuria or urgency. No previous similar symptoms. PMH: Negative for PSH: Non-contributory Allergies: None reported Social: Non-smoker, Non-drinker, No illicit drug abuse Exam: Right-sided pelvic tenderness lower abdominal tenderness Neurological exam normal Impression: Lab work and imaging obtained Differentials include but not limited to gastroenteritis, appendicitis, ovarian cyst Related Data Home Medications ?Medication ?Instructions ?Recorded ?Confirmed [id number] 1 mg 2 tab PO DAILY 03/07/24 04/15/24 tablet Previous Rx's ?Medication ?Instructions ?Recorded acetaminophen 300 mg-codeine 15 mg 1 tab PO Q8H PRN pain #10 tabs 08/03/24 tablet naproxen 375 mg tablet 375 mg PO BID PRN pain #20 tabs 02/07/25 Allergies Allergy/AdvReac Type Severity Reaction Status Date / Time No Known Allergies Allergy Verified 08/03/24 01:38 Review of Systems Review of Systems Systems Reviewed: All systems reviewed, normal except as documented ED Exam Narrative Physical exam: GEN. APPEARANCE: The patient is alert awake oriented X-3 under no distress, lying down comfortably, does not look ill/toxic. Patient has good eye contact. Patient is cooperative. C/o RLQ/groin pain. VITALS: All vitals were reviewed and the pulse ox is 98%, which is normal according to my interpretation HEENT: Normocephalic, atraumatic and nontender. Pupils are equal and reactive. Oral mucosa is moist. NECK: Supple, nontender, no meningismus, no JVD. There is no thyromegaly and no lymphadenopathy. CHEST: Nontender on palpation no deformity and no crepitus. CARDIOVASCULAR: Heart regular rhythm, no murmur or gallop rub or extra beats. LUNGS: Clear to auscultation bilaterally with symmetrical chest rise. No laboring tachypnea or wheezing. No intercostal subcostal retraction. No rales and no rhonchi. ABDOMEN: Soft, obese, localized TTP of RLQ with slight guarding extending slightly towards right flank, negative rovsing sign. There are no abnormal masses palpated. No pulsatile masses or bruits. Active and normal bowel sounds. EXTREMITIES: Normal inspection and palpation. No edema. No cyanosis. Patient is able to move all 4 extremities well SKIN: Warm and dry, no rashes noted. MUSCULOSKELETAL: No lumbar or midline bony tenderness. There is no CVA tenderness. No paraspinal muscle spasm or tenderness. NEURO: Cranial nerves II through XII grossly intact. There are no focal neurologic deficits noted. GCS is 15 PSYCHIATRIC: Patient is in normal mood and affect, cooperative. LYMPHATICS: No major lymphadenopathy noted. Course Quality Measures none Orders Category Date Time Status US pelvic complete Stat Exams 02/07/25 16:10 Completed CBC Stat Lab 02/07/25 16:38 Completed CRP [C-Reactive Protein] Stat Lab 02/07/25 16:30 Completed Comprehensive Metabolic Panel Stat Lab 02/07/25 16:30 Completed HCG Qualitative,Urine Stat Lab 02/07/25 16:30 Completed Lipase Stat Lab 02/07/25 16:30 Completed UA, C/S IF [Urinalysis, C/S if Indicated] Stat Lab 02/07/25 16:30 Completed Vital Signs Vital signs: Vital Signs Temperature 98.2 F 02/07/25 16:03 Pulse Rate 98 02/07/25 16:03 Respiratory Rate 20 02/07/25 16:03 Blood Pressure 148/95 H 02/07/25 16:03 Pulse Oximetry (%) 98 02/07/25 16:03 Oxygen Delivery Method Room Air 02/07/25 16:03 Abdominal Pain MDM MDM Narrative MDM Narrative:: Scribe Attestation: Ashley Sheth, jr scribing for and in the presence of Dr. Mistry. Provider Notation: Although this document has been carefully reviewed, there may still be some phonetic and other typographical errors. These errors are purely grammatical due to imperfections in the software program and should not be construed in any way to compromise the substance of the patient's medical care during this visit. Patient presenting with sudden RLQ/groin pain onset of 2 days [employer]TE[employer] of constant nature without nausea, vomiting, fever, or chills. Reports urinary frequency, but no dysuria or urgency. Please see PE findings. Laboratory markers including CBC demonstrate WBC of 8.2, no anemia or thrombocytopenia, no left shift or bandemia. Serum chemistries essentially unremarkable with the exception of mildly elevated blood sugar of 130. Lipase mildly elevated at 61. Pelvis US demonstrates evidence of a right ovarian cyst noted flow BL. Patient offered NSAID's and declined. Will provide reassurance, at this time low index suspicion for appendicitis. Will prescribe NSAID's and recommend close F/U with [employer]. Patient data External records reviewed:: [facility] previous records (Reviewed prior ED records from 08/03/24. Patient was seen for Pain in gums.) Clinical information provided by:: patient Social determinants that could affect healthcare access:: none Patient has the following chronic illnesses:: None reported How is presenting disease/condition affected by chronic disease/condition?: no chronic disease Evaluation data The following diagnostics were reviewed and interpreted by me:: lab results and radiology exam(s) Lab and/or radiology exams considered but not ordered:: None Interpretation Summary: RADIOLOGY Pelvic US: FINDINGS: Uterus 8.5 cm endometrial stripe 0.7 cm No uterine mass or intrauterine gestation. Right ovary 4.0 cm arterial flow, 25 x 28 mm simple cyst Left ovary 4.1 cm arterial flow IMPRESSION: No uterine mass or intrauterine gestation Right ovarian simple cyst 25 x 20 x 28 mm Medications / Prescriptions Medications or Prescriptions considered but not ordered:: None Medication administrations:: See above if any Consultations Consultation(s) initiated? (list below): No Diagnosis Differential diagnosis abdominal pain: abdominal pain (Uterine fibroid, Ovarian cyst) and endometriosis Most likely diagnosis given after review of the tests above:: Ovarian cyst Admission Indicated Admission indicated?: not indicated Explain why admission is indicated or not indicated:: Patient does not meet admission criteria Admission Request Was there a request for admission?: No Disposition Plan Disposition Plan: Discharge Discharge Attestation Discharge Attestation: The patient and all family members were given an opportunity to ask questions and understood the discharge instructions. Discharge instructions specifically effects, indications for sooner follow up or return to the emergency department, and the expected course of current diagnosis. Patient condition: Stable Discharge Plan Plan Patient Disposition: HOME (Self Care) Discharge Disposition comment: Stable Prescriptions/Referrals Prescriptions/Med Rec: New naproxen 375 mg tablet 375 mg PO BID PRN (Reason: pain) Qty: 20 0RF Rx Instructions: With Food No Action 1 mg Tablet 2 tab PO DAILY acetaminophen-codeine 300-15 mg tablet 1 tab PO Q8H PRN (Reason: pain) Qty: 10 0RF Referrals: Deshawn Lantigua PA-C [Primary Care Provider] - In 1 week Problem List Clinical Impression: Ovarian cyst Patient/Caregiver Discharge Instructions Discharge Activity: activity as tolerated Education Materials: Treatment for Ovarian Cysts, ED Ovarian Cyst Additional Instructions: Medications as directed. Follow-up with [employer] physician via family health within 1 to 2 weeks. Return if worsening Print Language: Chadian Stand Alone Forms: [employer] Info., Patient Portal Info Letter
== END 2025-02-07 21:13 | disposition home or self-care (01) ==
PROVIDERS: Nurse Practitioner Primary Care; Emergency Provider Emergency Medicine; PCP Physician Assistant
DX: N83.291 Other ovarian cyst, right side (principal)
CPT/HCPCS: 36415; 76856; 80053; 81001; 81025; 83690; 85025; 86140; 99281